=== PATIENT | male | born 1970 | race Two or more races ===

== ENCOUNTER 2019-12-21 16:04 | Emergency (ER) | payer OTHER, MEDICAID ==
[~2019-12-21] VITALS: Ht 170.2 cm; Wt 79.4 kg
[2019-12-21 18:18] VITALS: BP 138/70
== END 2019-12-21 18:20 | disposition home or self-care (01) ==
LOC: ER 16:04
DX: S33.5XXA Sprain of ligaments of lumbar spine, initial encounter (principal); V43.52XA Car driver injured in collision with other type car in traffic accident, initial encounter; Y93.89 Activity, other specified; Y92.488 Other paved roadways as the place of occurrence of the external cause; Y99.8 Other external cause status
CPT/HCPCS: 72100

== ENCOUNTER 2020-03-18 17:09 | Emergency (ER) | payer MEDICAID, OTHER ==
[~2020-03-18] VITALS: Ht 167.6 cm; Wt 73.5 kg
[2020-03-18 19:38] VITALS: BP 124/85
== END 2020-03-18 21:24 | disposition home or self-care (01) ==
LOC: MERGE 17:09 → ER 17:09
DX: U07.1 COVID-19 (principal); J02.9 Acute pharyngitis, unspecified
CPT/HCPCS: 71045

== ENCOUNTER 2021-03-17 08:20 | Emergency (ER) | payer MEDICAID ==
[~2021-03-17] VITALS: Ht 172.7 cm; Wt 72.6 kg
[2021-03-17 12:11] VITALS: BP 113/76
[2021-03-17] MEDS ORDERED: DIPH25CA66 PO (12:33)
[2021-03-17] MEDS ORDERED: PRED20TA2 PO (12:33)
[2021-03-17] MEDS ORDERED: diphenhdrAMINE HCL 50 MG/1 ML VL IM ONE (12:45)
[2021-03-17] MEDS ORDERED: methylPREDNISolone SOD SUCC 125 MG/2 ML VL IM ONE (12:45)
== END 2021-03-17 13:11 | disposition home or self-care (01) ==
LOC: ER 08:20
DX: H17.9 Unspecified corneal scar and opacity (principal); Z79.899 Other long term (current) drug therapy
CPT/HCPCS: 96372; 99284; J1200; J2930

== ENCOUNTER 2023-10-18 16:10 | Emergency (ER) | payer MEDICAID ==
[~2023-10-18] VITALS: Ht 170.2 cm; Wt 69.8 kg
[~2023-10-18 16:10] MED LIST: DIPH25CA66 PO; PRED20TA2 PO
[2023-10-18 16:29] VITALS: BP 126/49; PULSE 52; RESP 18; TEMP 98; O2SAT 98
[2023-10-18] MEDS: TETANUS-DIPTH-ACEL PERTUSSIS 0.5ML SYR Tdap IM ONE (19:09)
[2023-10-18] MEDS ORDERED: IBUP-1456 PO (20:05)
[2023-10-18] MEDS ORDERED: CEPH500C PO (20:05)
== END 2023-10-18 20:15 | disposition home or self-care (01) ==
LOC: ER 16:10
DX: S61.213A Laceration without foreign body of left middle finger without damage to nail, initial encounter (principal); W26.8XXA Contact with other sharp object(s), not elsewhere classified, initial encounter; Y93.89 Activity, other specified; Y92.89 Other specified places as the place of occurrence of the external cause; Y99.8 Other external cause status
CPT/HCPCS: 12002; 90471; 90715